=== PATIENT | male | born 1985 | race Caucasian/White ===

== ENCOUNTER 2016-11-02 09:29 | Emergency (ER) | payer MEDICAID | END 2016-11-02 11:15 | disposition home or self-care (01) | LOC: D.ER 09:29 | DX: Z76.5 Malingerer [conscious simulation] (principal); K21.9 Gastro-esophageal reflux disease without esophagitis ==

== ENCOUNTER 2016-11-12 17:42 | Emergency (ER) | payer MEDICAID | END 2016-11-12 18:23 | disposition home or self-care (01) | LOC: D.ER 17:42 | DX: Z03.89 Encounter for observation for other suspected diseases and conditions ruled out (principal); F41.9 Anxiety disorder, unspecified; Z76.5 Malingerer [conscious simulation]; K21.9 Gastro-esophageal reflux disease without esophagitis ==